=== PATIENT | male | born 1990 | race Caucasian/White ===

== ENCOUNTER 2016-11-14 18:07 | Emergency (ER) | payer SELFPAY ==
--- NOTE | 2016-11-14 19:40 | ERNOTE ---
ENT HPI Date of Service: 11/14/16 Presenting Symptoms: other - URI, enlarged lymph node Time Seen by Provider: 11/14/16 19:25 Source: patient, RN notes reviewed Exam Limitations: no limitations - Immun/Allergies/Home Medications Immunizations: IMMUNIZATION HX Immunizations Up to Date No History of Influenza Vaccine No Hx Pneumococcal Vaccination No Allergies/Adverse Reactions: Allergies Allergy/AdvReac Type Severity Reaction Status Date / Time Penicillins Allergy Verified 11/14/16 18:58 Home Medications: HOME MEDICATIONS NK [No Home Medication] 04/14/15 [Last Taken Unknown] - History of Present Illness Narrative: 26 y/o male ambulatory to the ED for URI symptoms and an enlarged cervical lymph node. He has had a sore throat, headache, nasal congestion, fatigue and malaise over the past couple of days. He was seen for an enlarged left cervical node by ENT approximately 6 months ago. He was treated with an antibiotic, but his symptoms did not improve. He did not f/u with ENT. He is concerned because the node has become even larger since he has not been feeling well. ENT Location: Present: throat Prearrival Treatment: Present: no prearrival treatment Associated Symptoms - ENT: Reports: malaise, sore throat, nasal congestion/ drainage, headache. Denies: fever, poor fluid intake, poor solid intake, cough , voice change, facial pain/swelling, tooth pain, jaw swelling, ear drainage Review of Systems - Review of Systems Constitutional: Present: See HPI EYE: Present: no symptoms reported ENT: Present: See HPI Respiratory: Present: See HPI Cardiology: Present: no symptoms reported Gastrointestinal/Abdominal: Absent: nausea, vomiting, diarrhea, abdominal pain Genitourinary: Present: no symptoms reported Musculoskeletal: Present: neck pain. Absent: muscle pain, joint pain Skin: Present: lumps. Absent: rash, lesions Neurological: Present: headache. Absent: dizziness/light-headedness Endocrine: Present: no symptoms reported Hematologic/Lymphatic: Present: no symptoms reported Psych: Present: no symptoms reported - Patient's Past Medical History Patient History - Medical: No pertinent hx Patient History - Cardiac/Respiratory: No pertinent hx Patient History - Cancer: No Hx of Cancer Patient History - Surgical Procedures: No surgical history Patient History - Other: None - Social History Living Situations: home Psych History: No pertinent hx Smoking Status: Current every day smoker Alcohol Use: occasionally Drug Use: marijuana - Immunizations Immunizations Up to Date: No Hx Pneumococcal Vaccination: No History of Influenza Vaccine: No Physical Exam - Physical Exam General Appearance: Present: alert, no apparent distress, thin Ears, Nose, Throat: Present: hearing grossly normal, nasal congestion, sinus pain/drainage, pharyngeal erythema. Absent: abnormal TM (R), abnormal TM (L), pharyngeal swelling Neck: Present: supple, lymphadenopathy (R), lymphadenopathy (L), tender lateral , other - bilateral submandibular node enlargement, worse on left Respiratory: Present: no respiratory distress, normal breath sounds, no accessory muscle use, lungs clear Cardiovascular/Chest: Present: regular rate, rhythm, no murmur Neurological Exam: Present: alert, oriented, normal mood/affect, no motor/ sensory deficits Skin Exam: Present: normal color, warm/dry ED Progress - Results and Orders Patient's Lab Results:: I have reviewed the patient's lab results. - Vital Signs Patient's Vital Signs:: I have reviewed the patient's vital signs. Vital Signs: Vital Signs 11/14/16 18:52 Temperature 36.7 C Pulse Rate 68 Respiratory 18 Rate Blood Pressure 138/98 O2 Sat by Pulse 98 Oximetry - Progress/Reassessment Chief Complaint: Sore Throat Progress:: Unchanged Plan - Plan Plan: Discussed lymphadenopathy at length - reassured patient that it is normal to have this during illness, but he should have f/u with ENT as the enlarged node of concern over the past few months did not improve with treatment Departure Clinical Impression: Upper respiratory infection, viral, Cervical lymphadenopathy - Departure Disposition: Home Follow Up Needed Condition: Good Instructions: Upper Respiratory Infection, Adult, [id number], Form - Excuse from Work, School, or Physical Activity Additional Instructions: Symptomatic treatment as discussed - push fluids, rest, nasal saline, humidity, Tylenol/ibuprofen for pain/fever Follow up with Dr. White about ongoing lymph node enlargement
[2016-11-14 20:01] LABS: Hematocrit 42.7 % (42.0-52.0); Hemoglobin 14.6 gm/dL (13.5-18.0); Mean Cell Volume 88.4 fl (78-100); Mean Corpuscular Hemoglobin 30.2 pg (27-31); Mean Corpuscular Hgb Conc 34.2 g/dl (32-36); Mean Platelet Volume 10.8 fl (6.0-9.5); Neutrophil # 3.2 K/mm3 (1.3-6.0); Neutrophil % 50.2 % (42-75.0); Platelet Count 185 K/mm3 (150-450); Red Blood Count 4.83 M/mm3 (4.7-6.0); Red Cell Distribution Width 12.1 % (11.5-14.0); White Blood Count 6.3 K/mm3 (4.0-10.5)
[2016-11-14 20:16] LABS: Albumin * 4.1 gm/dl (3.4-5.0); Anion Gap 14.9 mmol/L (6.8-13.8); BUN/Creatinine Ratio 14.8 (9.0-21.6); Bilirubin, Total 0.2 mg/dL (0.0-1.1); Ca. Corrected For Albumin 8.7 mg/dL (8.4-10.2); Calcium * 9.1 mg/dL (7.9-10.9); Carbon Dioxide 24.8 mmol/L (24-32.6); Potassium 3.7 mmol/L (3.4-4.6); Total Protein 7.7 gm/dL (6.2-8.2)
[2016-11-14 23:03] VITALS: BP 125/79
== END 2016-11-14 21:15 | disposition home or self-care (01) ==
LOC: ER 18:07
DX: J06.9 Acute upper respiratory infection, unspecified (principal); Z72.0 Tobacco use; R59.0 Localized enlarged lymph nodes

== ENCOUNTER 2018-08-08 16:28 | Inpatient (IN) ==
--- NOTE | 2018-08-08 17:10 | ERNOTE ---
Upper Extremity HPI - Narrative Date of Service: 08/08/18 - General Extremities Pain Location: thumb: left Time Seen by Provider: 08/08/18 16:39 Source: patient Exam Limitations: no limitations - Immun/Allergies/Home Medications Immunizations: IMMUNIZATION HX Immunizations Up to Date Yes History of Influenza Vaccine No Hx Pneumococcal Vaccination No Allergies/Adverse Reactions: Allergies Allergy/AdvReac Type Severity Reaction Status Date / Time Penicillins AdvReac Unknown Unknown Verified 08/08/18 16:34 Home Medications: HOME MEDICATIONS HYDROcodone/ACETAMINOPHEN [[place] 5-325 Tablet] 1 - 2 tab PO Q6H PRN #20 tab 08/06/18 [Last Taken Unknown] Sulfamethoxazole/Trimethoprim [Bactrim Ds] 1 tab PO BID #14 tab 08/06/18 [Last Taken Unknown] - History of Present Illness Narrative: Patient reports having been in the ER on Jul.31 for a swollen thumb of the left hand. Was not sure if there was a tuft fracture at that time. Patient returned 2 days ago with more swelling and signs of infection. Was placed on antibiotics. However patient reports he had increased redness extending clear up into his left armpit. States he has minimal sensation in the left thumb but normal in the fingers. Denies any fever. Date (Duration): 07/31/18 Occurred: last week Location of Incident: home Severity: moderate Method of Injury: Reports: other - Thought he may have poked his finger. Modifying Factors - (Worsens): Reports: movement Associated Symptoms: Reports: numbness distally Other Injuries: Reports: none Prior Treament: Reports: recently seen, treated by physician, similar symptoms before, currently on antibiotics Review of Systems - Review of Systems Constitutional: Present: no symptoms reported. Absent: fever Respiratory: Present: no symptoms reported Musculoskeletal: Present: See HPI, other - Left thumb swelling as described. Skin: Present: See HPI, other Neurological: Present: See HPI, numbness - Numbness on the tip of the thumb left hand. Hematologic/Lymphatic: Present: no symptoms reported Medical History (Last Reviewed 08/08/18 @ 16:34 by Brayan Brian RN) No pertinent family history No pertinent past medical history Surgical History: Surgical History (Last Reviewed 08/08/18 @ 16:34 by Brayan Brian RN) No pertinent past surgical history Family History: Family History (Last Reviewed 08/08/18 @ 16:34 by Brayan Brian RN) Other No pertinent family history Social History: Preferred Language Bahamian Smoking Status Current every day smoker Psych History No pertinent hx Alcohol Use none Drug Use none No Social History Section defined Physical Exam - Physical Exam General Appearance: Present: wd/wn, alert, moderate distress Respiratory: Present: no respiratory distress, no accessory muscle use Extremity Exam: Present: other - Patient has severe swelling of the left thumb with distal phalynx blackened. Very minimal sensation distally. Serosanguinous drainage from the proximal end of the dorsal nail. Entire hand is swollen on the left. However has sensation on the remainder phalanges of the hand. Neurological Exam: Present: alert, oriented Skin Exam: Present: other - Patient has lymphangitis extending from the left hand on the volar side extending proximally into the left axilla. very warm to touch. ED Progress - Results and Orders Patient's Lab Results:: I have reviewed the patient's lab results. - Vital Signs Patient's Vital Signs:: I have reviewed the patient's vital signs. Vital Signs: Vital Signs 08/08/18 16:28 08/08/18 16:38 Temperature 36.8 C 38.2 C H Pulse Rate 119 H 121 H Respiratory Rate 16 20 Blood Pressure 153/92 H 126/96 H O2 Sat by Pulse Oximetry 100 100 - Progress/Reassessment Chief Complaint: Hand Injury/Pain Progress:: Improved - Dr. Franco in to intervene on the left 1st digit. Notified Dr. Shaw of need for admit and he agrees. Will admit acute. Departure Clinical Impression: Abscess of finger of left hand, Acute lymphangitis of left upper extremity - Departure Disposition: Still a patient Condition: Stable
[2018-08-08 17:11] LABS: Hematocrit 34.6 % (42.0-52.0); Hemoglobin 11.7 gm/dL (13.5-18.0); Mean Cell Volume 88.5 fl (78-100); Mean Corpuscular Hemoglobin 29.9 pg (27-31); Mean Corpuscular Hgb Conc 33.8 g/dl (32-36); Mean Platelet Volume 9.4 fl (8-11.3); Neutrophil # 11.1 K/mm3 (1.3-6.0); Neutrophil % 79.8 % (42-75.0); Platelet Count 258 K/mm3 (150-450); Red Blood Count 3.91 M/mm3 (4.7-6.0); Red Cell Distribution Width 12.5 % (11.5-14.0); White Blood Count 13.9 K/mm3 (4.0-10.5)
[2018-08-08] MEDS ORDERED: VANCOMYCIN HCL 1 GM in DEXTROSE 5 % IN WATER 250 ML IV ONE ×2 (17:11)
[2018-08-08] MEDS ORDERED: CLINDAMYCIN PHOSPHATE 900 MG in DEXTROSE 5 % IN WATER 100 ML IV ONE ×2 (17:13)
[2018-08-08] MEDS ORDERED: NORMAL SALINE 1,000 ML IV PRN (17:16)
[2018-08-08 17:37] LABS: Albumin * 3.2 gm/dl (3.4-5.0); Anion Gap 12.5 mmol/L (6.8-13.8); BUN/Creatinine Ratio 13.6 (9.0-21.6); Bilirubin, Total 0.3 mg/dL (0.0-1.1); Ca. Corrected For Albumin 9.2 mg/dL (8.4-10.2); Calcium * 8.9 mg/dL (7.9-10.9); Carbon Dioxide 30.7 mmol/L (24-32.6); Potassium 4.2 mmol/L (3.4-4.6); Total Protein 7.9 gm/dL (6.2-8.2)
[2018-08-08] MEDS ORDERED: ACETAMINOPHEN 500 MG TABLET PO ONE (18:09)
[2018-08-08] MEDS ORDERED: MORPHINE SULFATE 4 MG/ML SYRG IV ONE (18:25)
[2018-08-08] MEDS: NICOTINE 21 MG PATC TD SCH (18:27)
--- NOTE | 2018-08-08 18:31 | CONS ---
- Reason for consultation (1) Abscess of finger of left hand Date of Service: 08/08/18 HPI - General Narrative: Mr. Martinez is a 27-year-old gentleman who states he was placing a trailer hitch on the trailer ball when he stubbed his thumb approximately a week and half ago. He states he had pain but no bleeding at the time of injury. He was seen at [facility] and initial evaluation was a possible tuft fracture. He reports approximately 3 days ago he noted increased swelling and pain and reported again to the emergency department at time he is found to have some increased erythema was placed on antibiotics and arranged for orthopedic follow- up. He reports today with increased swelling and pain. He had some noted drainage over the dorsal aspect of the thumb which was concerning as well as some increased erythema spreading up his arm. He states most his pain is over the dorsal aspect of his thumb as well as the tip of his thumb and he has minimal pain proximal or into the forearm. He denies any lacerations or puncture wounds. He also states she does not have a history of recurrent infections. Source: patient Exam Limitations: no limitations - History of Present Illness Timing/Duration: 1 week Severity: severe Modifying Factors - (Worsens): Reports: movement Modifying Factors - (Improves): Reports: immobilization, medication Associated Symptoms: fever/chills Allergies/Adverse Reactions: Allergies Penicillins Adverse Reaction (Unknown, Verified 08/08/18 16:34) Unknown Home Medications: Home Medications Medication Instructions Recorded Last Taken HYDROcodone/ACETAMINOPHEN [[place] 1 - 2 tab PO Q6H PRN #20 tab 08/06/18 Unknown 5-325 Tablet] Sulfamethoxazole/Trimethoprim 1 tab PO BID #14 tab 08/06/18 Unknown [Bactrim Ds] Procedures Application of splint (03/29/07) Closed reduction of nasal fracture (01/08/09) Closure of skin and subcutaneous tissue of other sites (01/08/09) Immobilization of Left Thumb using Splint (07/31/18) Suture of laceration of other part of mouth (01/08/09) Medications - Medications Current Medications: Current Medications Vancomycin HCl 1 gm/ Dextrose/ (Water) 250 mls @ 140 mls/hr IV ONCE ONE; Protocol Stop: 08/08/18 18:58 Last Admin: 08/08/18 18:15 Dose: 140 mls/hr Sodium Chloride (Sodium Chloride 0.9%) 1,000 mls @ 999 mls/hr IV .Q1H1M PRN PRN Reason: HYDRATION Stop: 09/07/18 17:17 Last Infusion: 08/08/18 18:22 Dose: 100 mls/hr Review of Systems - Review of Systems Narrative: Negative except for above Generalized/Overall Review: Present: No Symptoms Reported Physical Examination - Exam Narrative: Left thumb: Palpable loculation over the tip of the thumb as well as the dorsal aspect of the thumb. There is a draining tract proximal to the nail. There is noted erythema spreading into the radial aspect of the forearm. He has no tenderness along the extensor tendons proximal to the thumb. No tenderness along the flexor tendons proximal to the thumb. He is significant swelling about his thumb and hand. Sensation is intact light touch. He is able to flex and extend his thumb without excessive pain. He has minimal tenderness along the flexor tendon sheath. He has moderate tenderness over the dorsal aspect of the thumb. He has brisk cap refill proximally and some discoloration distally. Vital Signs: Vital Signs - Last Taken Temp 39.5 C H 08/08/18 17:37 Pulse 113 H 08/08/18 17:37 Resp 14 08/08/18 17:37 BP 146/90 H 08/08/18 17:37 Pulse Ox 99 08/08/18 17:37 O2 Oxygen Delivery Method Room Air Constitutional: Present: Alert, Oriented x3 - Results and Findings: Lab/Microbiology results last 24 hrs: Abnormal/Pending Laboratory Last 24 HRS 08/08/18 08/08/18 16:55 16:55 WBC 13.9 H RBC 3.91 L Hgb 11.7 L Hct 34.6 L Immature Gran # (Auto) 0.05 H Neutrophils % 79.8 H Lymphocytes % 12.0 L Neutrophils # 11.1 H Albumin 3.2 L - Assessments/Findings (1) Abscess of finger of left hand Diagnosis(s): We discussed the patient that he likely has a significant abscess which is somewhat atypical as he had no puncture wounds or bleeding 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 He developed likely a felon which has spread into the dorsal aspect of his thumb. An irrigation debridement was performed at bedside. See procedure note. He will be admitted to medicine for IV antibiotics and wound care. We discussed the risk of him having some deformity once this thumb is fully healed but by decompressing this abscess and placing him on IV antibiotics he should be able to heal this up well. Problem: Acute
--- NOTE | 2018-08-08 18:36 | OR ---
Operative Report - Dictated Report Narrative: Date: 08/08/2018 Surgeon: Ashish Franco M.D. Anatomic Pathologist: None Anesthesia: Digital block with 1% lidocaine plain Preoperative diagnosis: Left thumb abscess. Postoperative diagnosis: Left thumb abscess Procedure: left thumb irrigation and debridement Estimated blood loss: Minimal Specimens: Culture Complications: None Indications: Mr. Martinez is a 27-year-old gentleman who injured his left thumb approximately week and a half ago while hitching a trailer. He was seen in the emergency department revealing the above injury. Treatment options were discussed with the patient and the plan for irrigation and debridement was discussed. Risks were reviewed. Procedure: After a timeout, digital block anesthetic was induced. Once adequate anesthesia was in place a Artemus drain was placed around the base of the thumb. Total time was approximately 25 minutes. A transverse laceration was made over the volar aspect of the pulp along the radial aspect of the thumb. A longitudinal incision was made over the base of the dorsal aspect of the thumb. The draining sinus tract was also developed. All 3 of these spots produced significant purulent material. Once this was decompressed or significant sloughing of the skin over the volar aspect of the thumb as well as the ulnar dorsal aspect of the thumb. This was excised using tenotomies. The nail was also unstable and this was removed. There was a small draining tract at the tip of the thumb through the sterile matrix. The purulent necrotic appearing tissues were debrided which was not an extensive amount. The thumb was placed through range of motion and had no increased purulent drainage. Pressure and manipulation of the fluid pockets produced significant purulent material. Once we had expressed all the preoperative material, copious saline irrigation was placed through the wounds. A Artemus drain was placed dorsally as well as over the tip of the thumb. A single stitch was placed across the sterile matrix in order to reapproximate this wound. Xeroform, 4 x 4, and gauze was placed to the thumb. Tourniquet was deflated and there was not excessive bleeding. After the procedure he reports no increased or significant tenderness along the flexor extensor tendons proximal to the thumb.
[2018-08-08] MEDS ORDERED: HYDROcodone/ACETAMINOPHEN 1 EACH TABLET PO PRN (20:53)
--- NOTE | 2018-08-08 21:14 | HP ---
Chief Complaint - Chief Complaint Date of Service: 08/08/18 Time of Service: 08:45 Chief Complaint: Infected L. thumb with lymphangitis to the L. axilla History of Present Illness: Was initially seen 07/31 for pain and swelling in the L. thumb. Possible tuft fracture then. Returned 3 days later with more redness and swelling and pain and was started on an antibiotic but it has continued to worsen. He was seen in the ER this afternoon by Dr. Franco and the wound was opened and drained. He is admitted with a severe L. hand infection with marked lymphangitis to the L. axilla. He is afebrile. He reports that he is in good health otherwise, takes no chronic meds, and has no PCP. 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 Smoking Status Current every day smoker Have you smoked in the past 12 Yes months Do you dip or chew tobacco No Psych History No pertinent hx Alcohol Use none Drug Use none No Social History Section defined Review Of Systems (GEN) - Review of Systems Generalized/Overall Review: Absent: Chills, Fever, Malaise EENTM: Present: No Symptoms Reported Respiratory: Present: No Symptoms Reported Cardiac: Present: No Symptoms Reported Abdominal: Present: No Symptoms Reported Genitourinary: Present: No Symptoms Reported Musculoskeletal: Present: No Symptoms Reported Neurological: Present: No Symptoms Reported Skin: Present: Other - L. thumb infection with near anesthesia of the thumb, swelling of the L. hand, fever, redness and lymphangitis to the L axilla. Endocrine: Present: No Symptoms Reported Misc: All systems neg except as marked Immunizations: IMMUNIZATION HX Immunizations Up to Date Yes History of Influenza Vaccine No Hx Pneumococcal Vaccination No Allergies/Adverse Reactions: Allergies Allergy/AdvReac Type Severity Reaction Status Date / Time Penicillins AdvReac Unknown Unknown Verified 08/08/18 16:34 Home Medications: HOME MEDICATIONS HYDROcodone/ACETAMINOPHEN [[place] 5-325 Tablet] 1 - 2 tab PO Q6H PRN #20 tab 08/06/18 [Last Taken Unknown] Sulfamethoxazole/Trimethoprim [Bactrim Ds] 1 tab PO BID #14 tab 08/06/18 [Last Taken Unknown] Exam - Exam Vital Signs: Vital Signs - Last Taken Temp 37.6 C 08/08/18 19:23 Pulse 110 H 08/08/18 19:23 Resp 16 08/08/18 19:23 BP 135/81 08/08/18 19:23 Pulse Ox 99 08/08/18 19:23 Constitutional: Present: Alert, Oriented x3, Cooperative, Well developed, Well nourished, No distress Eye Exam: bilateral eye: normal inspection, PERRL, EOMI Neck: Present: non-tender, full range of motion Back Exam: Present: normal inspection, no CVA tenderness, no vertebral tenderness Breasts: Present: Exam deferred, Nontender Respiratory: Present: chest non-tender, lungs clear, normal breath sounds, no respiratory distress, no accessory muscle use Cardiovascular/Chest: Present: normal peripheral pulses, regular rate, rhythm, no chest tenderness, no edema - except in the L UE. Peripheral Pulses: carotid (R): 2+, carotid (L): 2+, radial (R): 2+, radial (L): 2+ Abdomen: Present: Normal bowel sounds, soft, nontender, nondistended, no rebound tenderness, no hepatospenomegaly, no masses /Rectal: Present: Exam deferred, External genitalia normal Extremity: Present: normal range of motion, non-tender, normal inspection, no pedal edema, no calf tenderness, normal capillary refill Skin Exam: Present: normal color, warm/dry, no cyanosis, other - See description above for the L. hand and arm findings. Neurologic: Present: ssis architect II-XII nml as tested, normal cerebellar test, no motor/sensory deficits, alert, normal mood/affect, oriented x 3 Appearance: Present: appropriate appearance, appropriate insight, neat, no memory impairment Eye contact: Present: cooperative, good eye contact, normal speech Thoughts: Present: normal thought pattern, no apparent hallucination. Absent: auditory hallucinations, delusions Diagnostic Studies: Abnormal Lab Results 08/08/18 08/08/18 Range/Units 16:55 16:55 WBC 13.9 H (4.0-10.5) K/mm3 RBC 3.91 L (4.7-6.0) M/mm3 Hgb 11.7 L (13.5-18.0) gm/dL Hct 34.6 L (42.0-52.0) % Immature Gran # (Auto) 0.05 H (0.000-0.0310) K/mm3 Neutrophils % 79.8 H (42-75.0) % Lymphocytes % 12.0 L (20-51) % Neutrophils # 11.1 H (1.3-6.0) K/mm3 Albumin 3.2 L (3.4-5.0) gm/dl Laboratory Results WBC 13.9 K/mm3 (4.0-10.5) H 08/08/18 16:55 RBC 3.91 M/mm3 (4.7-6.0) L 08/08/18 16:55 Hgb 11.7 gm/dL (13.5-18.0) L 08/08/18 16:55 Hct 34.6 % (42.0-52.0) L 08/08/18 16:55 MCV 88.5 fl (78-100) 08/08/18 16:55 MCH 29.9 pg (27-31) 08/08/18 16:55 MCHC 33.8 g/dl (32-36) 08/08/18 16:55 RDW 12.5 % (11.5-14.0) 08/08/18 16:55 Plt Count 258 K/mm3 (150-450) 08/08/18 16:55 MPV 9.4 fl (8-11.3) 08/08/18 16:55 Immature Gran % (Auto) 0.40 % (0.001-0.429) 08/08/18 16:55 Immature Gran # (Auto) 0.05 K/mm3 (0.000-0.0310) H 08/08/18 16:55 Neutrophils % 79.8 % (42-75.0) H 08/08/18 16:55 Lymphocytes % 12.0 % (20-51) L 08/08/18 16:55 Monocytes % 6.9 % (0.0-9) 08/08/18 16:55 Eosinophils % 0.7 % (0.0-3.0) 08/08/18 16:55 Basophils % 0.2 % (0.0-1.0) 08/08/18 16:55 Nucleated RBC % 0.0 k/mm3 (0-1) 08/08/18 16:55 Neutrophils # 11.1 K/mm3 (1.3-6.0) H 08/08/18 16:55 Lymphocytes # 1.67 k/mm3 (1.5-3.5) 08/08/18 16:55 Monocytes # 1.0 k/mm3 (0.0-1.0) 08/08/18 16:55 Eosinophils # 0.1 k/mm3 (0.0-0.7) 08/08/18 16:55 Absolute Basophils 0.0 k/mm3 (0.0-0.1) 08/08/18 16:55 Sodium 136 mmol/L (132-142) 08/08/18 16:55 Plasma Sodium 136 mmol/L (130-142) 08/08/18 16:55 Potassium 4.2 mmol/L (3.4-4.6) 08/08/18 16:55 Chloride 97 mmol/L (97-106) 08/08/18 16:55 Carbon Dioxide 30.7 mmol/L (24-32.6) 08/08/18 16:55 Anion Gap 12.5 mmol/L (6.8-13.8) 08/08/18 16:55 BUN 14 mg/dL (6-23) 08/08/18 16:55 Creatinine 1.03 mg/dL (0.4-1.4) 08/08/18 16:55 Est GFR (Non-Af Amer) 94 mL/min (60-130) 08/08/18 16:55 BUN/Creatinine Ratio 13.6 (9.0-21.6) 08/08/18 16:55 Random Glucose 91 mg/dL (70-110) 08/08/18 16:55 Lactic Acid, Venous 0.8 mmol/L (0.4-2.0) 08/08/18 16:55 Calcium 8.9 mg/dL (7.9-10.9) 08/08/18 16:55 Calcium Adj for Albumin 9.2 mg/dL (8.4-10.2) 08/08/18 16:55 Total Bilirubin 0.3 mg/dL (0.0-1.1) 08/08/18 16:55 AST 24 U/L (0-48) 08/08/18 16:55 ALT 36 U/L (19-67) 08/08/18 16:55 Alkaline Phosphatase 89 U/L (50-170) 08/08/18 16:55 Total Protein 7.9 gm/dL (6.2-8.2) 08/08/18 16:55 Albumin 3.2 gm/dl (3.4-5.0) L 08/08/18 16:55 Assessment/Plan - Narrative Narrative: 1. IV antibiotics estimated 3 days 2. monitor closely for other possible surgical needs 3. Manage pain - Assessment/Plan (1) Cellulitis Problem: Acute Qualifiers: Site of cellulitis: extremity Site of cellulitis of extremity: upper extremity Laterality: right Qualified Code(s): L03.113 - Cellulitis of right upper limb (2) Abscess of finger of left hand Problem: Acute (3) Acute lymphangitis of left upper extremity Problem: Acute
[2018-08-08] MEDS: SULFAMETHOXAZOLE/TRIMETHOPRIM 1 TAB TABLET PO SCH (21:30)
[2018-08-08] MEDS: MORPHINE SULFATE 10 MG/ML SYRG IV PRN (21:31)
[2018-08-08] MEDS: NORMAL SALINE 1,000 ML IV PRN (23:00)
[2018-08-09] MEDS: MORPHINE SULFATE 10 MG/ML SYRG IV PRN ×5 (01:17→19:09)
[2018-08-09] MEDS: CLINDAMYCIN PHOSPHATE 900 MG in DEXTROSE 5 % IN WATER 100 ML IV SCH ×6 (01:21→17:37)
[2018-08-09] MEDS ORDERED: VANCOMYCIN HCL 1 GM in DEXTROSE 5 % IN WATER 250 ML IV SCH ×2 (05:00)
[2018-08-09 06:01] LABS: Hematocrit 36.9 % (42.0-52.0); Hemoglobin 12.2 gm/dL (13.5-18.0); Mean Cell Volume 89.8 fl (78-100); Mean Corpuscular Hemoglobin 29.7 pg (27-31); Mean Corpuscular Hgb Conc 33.1 g/dl (32-36); Mean Platelet Volume 9.7 fl (8-11.3); Neutrophil # 7.1 K/mm3 (1.3-6.0); Neutrophil % 66.4 % (42-75.0); Platelet Count 234 K/mm3 (150-450); Red Blood Count 4.11 M/mm3 (4.7-6.0); Red Cell Distribution Width 12.6 % (11.5-14.0); White Blood Count 10.7 K/mm3 (4.0-10.5)
[2018-08-09] MEDS: SULFAMETHOXAZOLE/TRIMETHOPRIM 1 TAB TABLET PO SCH (08:01)
[2018-08-09] MEDS: NORMAL SALINE 1,000 ML IV PRN ×2 (08:01→16:45)
--- NOTE | 2018-08-09 10:25 | PN ---
Subjective - Date and Time Seen Date: 08/09/18 Time: 10:23 Subjective Narrative: He reports some improved pain. Still uncomfortable. Better with pain meds. No other complaints Objective - Vitals Vitals: Last Vital Signs Temp 36.9 C 08/09/18 07:20 Pulse 83 08/09/18 07:20 Resp 20 08/09/18 07:20 BP 113/60 08/09/18 07:20 Pulse Ox 100 08/09/18 07:20 - Abnormal Lab Findings Abnormal Lab Findings: Abnormal Lab Results 08/08/18 08/08/18 08/09/18 Range/Units 16:55 16:55 06:00 WBC 13.9 H 10.7 H D (4.0-10.5) K/mm3 RBC 3.91 L 4.11 L (4.7-6.0) M/mm3 Hgb 11.7 L 12.2 L (13.5-18.0) gm/dL Hct 34.6 L 36.9 L (42.0-52.0) % Immature Gran # (Auto) 0.05 H 0.04 H (0.000-0.0310) K/mm3 Neutrophils % 79.8 H (42-75.0) % Lymphocytes % 12.0 L (20-51) % Neutrophils # 11.1 H 7.1 H (1.3-6.0) K/mm3 Albumin 3.2 L (3.4-5.0) gm/dl - Exam Exam Narrative: LUE - dressings intact with bloody / serous drainage, erythema improved up arm, swelling slightly improved, no pain in other fingers or along volar/dorsal tendons of thumb Constitutional: Present: Alert, Oriented x3 Assessment/Plan - Problems/Diagnosis (1) Abscess of finger of left hand Problem: Acute Narrative: Will plan for dressing change this afternoon, continue IV antibiotics until cultures return, keep wounds dry.
--- NOTE | 2018-08-09 13:01 | PN ---
Subjective - Date and Time Seen Date: 08/09/18 Time: 11:00 Subjective Narrative: Juan Pablo Martinez was admitted yesterday with a left thumb infection and infection, cellulitis of the hand, lymphangitis to the axilla and axillary adenitis. This is been causing a lot of pain in the thumb. Dr. Franco opened and drained the abscess on the thumb in the emergency room. He will follow along while he is in the hospital. This morning the arm is less red but there is still quite a lot of swelling in the forearm. The lymphangitis is nearly faded completely now. He continues to have a lot of axillary lymphadenitis. He has been afebrile. Jenny and I discussed his antibiotic profile this morning and we have decided to discontinue the Bactrim and vancomycin. We will continue clindamycin 900 mg 3 times a day pending culture results. There is interval clinical improvement. His pain management has been an adequate with oral hydrocodone. The morphine helps but makes him very sleepy. I discontinued the hydrocodone and will start oxycodone 5/325 to take 2 by mouth every 4 hours when necessary for pain. Objective - Review of Systems Generalized/Overall Review: Reports: No Symptoms Reported EENTM: Reports: No Symptoms Reported Respiratory: Reports: No Symptoms Reported Cardiac: Reports: No Symptoms Reported Abdominal: Reports: No Symptoms Reported Genitourinary Symptoms: Reports: No Symptoms Reported Musculoskeletal Complaints: Reports: Other - Left thumb, and, forearm and arm Neurological: Reports: Numbness - In the left thumb as it is nearly anesthetic. The rest of the fingers still have feeling. Skin: Reports: No Symptoms Reported Endocrine: Reports: No Symptoms Reported - Vitals Vitals: Last Vital Signs Temp 36.9 C 08/09/18 10:52 Pulse 88 08/09/18 10:52 Resp 20 08/09/18 10:52 BP 99/42 08/09/18 10:52 Pulse Ox 100 08/09/18 10:52 - Abnormal Lab Findings Abnormal Lab Findings: Abnormal Lab Results 08/08/18 08/08/18 08/09/18 Range/Units 16:55 16:55 06:00 WBC 13.9 H 10.7 H D (4.0-10.5) K/mm3 RBC 3.91 L 4.11 L (4.7-6.0) M/mm3 Hgb 11.7 L 12.2 L (13.5-18.0) gm/dL Hct 34.6 L 36.9 L (42.0-52.0) % Immature Gran # (Auto) 0.05 H 0.04 H (0.000-0.0310) K/mm3 Neutrophils % 79.8 H (42-75.0) % Lymphocytes % 12.0 L (20-51) % Neutrophils # 11.1 H 7.1 H (1.3-6.0) K/mm3 Albumin 3.2 L (3.4-5.0) gm/dl - Exam Constitutional: Present: Alert, Oriented x3, Cooperative, Well developed, Well nourished, No distress ENT Exam: Present: normal ENT inspection, hearing grossly normal, pharynx normal Neck: Present: non-tender, full range of motion, supple, normal inspection, trachea midline Breasts: Present: Exam deferred Respiratory: Present: chest non-tender, lungs clear, normal breath sounds, no respiratory distress, no accessory muscle use Cardiovascular/Chest: Present: normal peripheral pulses, regular rate, rhythm, no chest tenderness, no edema, no gallop Abdomen: Present: Normal bowel sounds, soft, nontender, nondistended, no rebound tenderness, no hepatospenomegaly, no masses /Rectal: Present: Exam deferred Extremity: Present: normal range of motion, non-tender, normal inspection, no pedal edema, no calf tenderness, normal capillary refill, other - The findings of a left upper extremity are described above. Skin Exam: Present: normal color, warm/dry, no cyanosis Lymphatic: Present: axilla node tender (L) Neurologic: Present: division chief II-XII nml as tested, no motor/sensory deficits, alert, normal mood/affect, oriented x 3 Appearance: Present: appropriate appearance, appropriate insight, neat, no memory impairment Eye contact: Present: cooperative, good eye contact, normal speech Thoughts: Present: normal thought pattern, no apparent hallucination Assessment/Plan - Problems/Diagnosis (1) Abscess of finger of left hand Problem: Acute (2) Cellulitis Problem: Acute Qualifiers: Site of cellulitis: extremity Site of cellulitis of extremity: upper extremity Laterality: right Qualified Code(s): L03.113 - Cellulitis of right upper limb (3) Acute lymphangitis of left upper extremity Problem: Acute (4) Axillary lymphadenitis Problem: Acute Narrative: The lymph nodes in the left axilla are more tender today than they were yesterday. They are palpably enlarged and tender to touch. There continues to be some fever and the arm although I only subjectively is less than yesterday.
[2018-08-09] MEDS: oxyCODONE HCL/ACETAMINOPHEN 1 TAB TABLET PO PRN ×2 (14:28→22:07)
[2018-08-09] MEDS: NICOTINE 21 MG PATC TD SCH (17:37)
[2018-08-10] MEDS: CLINDAMYCIN PHOSPHATE 900 MG in DEXTROSE 5 % IN WATER 100 ML IV SCH ×6 (01:04→17:19)
[2018-08-10] MEDS: MORPHINE SULFATE 10 MG/ML SYRG IV PRN ×2 (01:11→04:42)
[2018-08-10] MEDS: NORMAL SALINE 1,000 ML IV PRN ×3 (01:48→20:23)
[2018-08-10] MEDS: oxyCODONE HCL/ACETAMINOPHEN 1 TAB TABLET PO PRN ×4 (06:39→22:09)
--- NOTE | 2018-08-10 09:11 | PN ---
Subjective - Date and Time Seen Date: 08/10/18 Time: 08:20 Subjective Narrative: Juan Pablo continues to show clinical improvement. Arm redness and the lymphangitis are no longer visible. The axillary adenopathy is still present and remains very tender to palpation. The left thumb has much more feeling in it now and it is causing more pain. The other 4 fingers seem to be normal sensory. His pain management is better than yesterday but still is having quite a lot of discomfort. Continues to take oxycodone 06/30/2025 and the IV morphine. Cultures are not back yet expect finals tomorrow. Hopefully his sensitivity will tell us how to complete his treatment program. He is on clindamycin 900 mg IV 3 times a day. Objective - Review of Systems Generalized/Overall Review: Reports: No Symptoms Reported EENTM: Reports: No Symptoms Reported Respiratory: Reports: No Symptoms Reported Cardiac: Reports: No Symptoms Reported Abdominal: Reports: No Symptoms Reported Genitourinary Symptoms: Reports: No Symptoms Reported Musculoskeletal Complaints: Reports: Other - Pain in the left thumb hand and axilla as described above. Lymphangitis and swelling are greatly reduced. Neurological: Reports: No Symptoms Reported, Numbness - Of the left thumb Skin: Reports: No Symptoms Reported Endocrine: Reports: No Symptoms Reported - Vitals Vitals: Last Vital Signs Temp 36.4 C 08/10/18 01:28 Pulse 90 08/10/18 01:28 Resp 18 08/10/18 01:28 BP 114/70 08/10/18 01:28 Pulse Ox 98 08/10/18 01:28 - Exam Constitutional: Present: Alert, Oriented x3, Cooperative, Mild distress - Due to continued pain in the thumb ENT Exam: Present: normal ENT inspection, hearing grossly normal, pharynx normal Neck: Present: non-tender, full range of motion, supple Breasts: Present: Exam deferred Respiratory: Present: chest non-tender, lungs clear, normal breath sounds Cardiovascular/Chest: Present: normal peripheral pulses, regular rate, rhythm, no chest tenderness, no edema, no gallop, no JVD, no murmur Abdomen: Present: Normal bowel sounds, soft /Rectal: Present: Exam deferred Extremity: Present: normal range of motion, non-tender, normal inspection, no pedal edema, no calf tenderness Skin Exam: Present: normal color, warm/dry, no cyanosis Lymphatic: Present: no adenopathy Neurologic: Present: 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 nml as tested, normal cerebellar test, no motor/sensory deficits, alert, normal mood/affect, oriented x 3 Appearance: Present: appropriate appearance, appropriate insight, neat, no memory impairment Eye contact: Present: cooperative, good eye contact, normal speech Thoughts: Present: normal thought pattern, no apparent hallucination, normal mood /affect Assessment/Plan - Problems/Diagnosis (1) Abscess of finger of left hand Problem: Acute (2) Cellulitis Problem: Acute Qualifiers: Site of cellulitis: extremity Site of cellulitis of extremity: upper extremity Laterality: right Qualified Code(s): L03.113 - Cellulitis of right upper limb (3) Acute lymphangitis of left upper extremity Problem: Acute (4) Axillary lymphadenitis Problem: Acute
[2018-08-10] MEDS: NICOTINE 21 MG PATC TD SCH (17:15)
[2018-08-11] MEDS: CLINDAMYCIN PHOSPHATE 900 MG in DEXTROSE 5 % IN WATER 100 ML IV SCH ×4 (01:08→09:02)
[2018-08-11] MEDS: oxyCODONE HCL/ACETAMINOPHEN 1 TAB TABLET PO PRN ×2 (03:38→07:46)
[2018-08-11] MEDS: NORMAL SALINE 1,000 ML IV PRN (05:43)
--- NOTE | 2018-08-11 08:36 | DS ---
(1) Abscess of finger of left hand Problem: Acute (2) Cellulitis Problem: Resolved Qualifiers: Site of cellulitis: extremity Site of cellulitis of extremity: upper extremity Laterality: right Qualified Code(s): L03.113 - Cellulitis of right upper limb (3) Acute lymphangitis of left upper extremity Problem: Resolved (4) Axillary lymphadenitis Problem: Acute Description of Stay: Juan Pablo Martinez is a 27-year-old male who is admitted to my service through the emergency room with an infected thumb, lymphangitis to the left axilla, left axillary lymphadenitis. This is causing him extreme pain. He's had this them infected before last February and at that time was cultured as MRSA and sensitive to clindamycin. He had been on Bactrim DS but it was ineffective orally and so he was admitted failing outpatient therapy. He was initially started on clindamycin and vancomycin. The vancomycin was discontinued and he was continued on 900 mg clindamycin 3 times a day. Final culture report and ID and sensitivity are available just this morning and again showed this to be MRSA and again sensitive to clindamycin. He has used a lot of pain medication including IV morphine and oxycodone. Makes her sleepy but hasn't relieved his pain very well. He hasn't taken any morphine through the night but has been taking the oxycodone frequently. I will send him home on oxycodone alone. He will see me in the office in 6 days and then either follow with Dr. Franco or clinic until this is completely healed. Otherwise he has noted no other healthcare problems while here. Disposition is improved. Prognosis is good. Procedures Performed: none Results and Findings: Pending Mircobiology Results 08/08/18 17:10 Blood Blood Culture - Preliminary NO GROWTH AFTER 48 HOURS 08/08/18 16:55 Blood Blood Culture - Preliminary NO GROWTH AFTER 48 HOURS Lab Pending Results 08/08/18 16:55: WBC 13.9 H, RBC 3.91 L, Hgb 11.7 L, Hct 34.6 L, MCV 88.5, MCH 29.9, MCHC 33.8, RDW 12.5, Plt Count 258, MPV 9.4, Immature Gran % (Auto) 0.40, Immature Gran # (Auto) 0.05 H, Neutrophils % 79.8 H, Lymphocytes % 12.0 L, Monocytes % 6.9, Eosinophils % 0.7, Basophils % 0.2, Nucleated RBC % 0.0, Neutrophils # 11.1 H, Lymphocytes # 1.67, Monocytes # 1.0, Eosinophils # 0.1, Absolute Basophils 0.0 08/08/18 16:55: Lactic Acid, Venous 0.8 08/08/18 16:55: Sodium 136, Plasma Sodium 136, Potassium 4.2, Chloride 97, Carbon Dioxide 30.7, Anion Gap 12.5, BUN 14, Creatinine 1.03, Est GFR (Non-Af Amer) 94, BUN/Creatinine Ratio 13.6, Random Glucose 91, Calcium 8.9, Calcium Adj for Albumin 9.2, Total Bilirubin 0.3, AST 24, ALT 36, Alkaline Phosphatase 89, Total Protein 7.9, Albumin 3.2 L 08/09/18 06:00: WBC 10.7 H D, RBC 4.11 L, Hgb 12.2 L, Hct 36.9 L, MCV 89.8, MCH 29.7, MCHC 33.1, RDW 12.6, Plt Count 234, MPV 9.7, Immature Gran % (Auto) 0.40, Immature Gran # (Auto) 0.04 H, Neutrophils % 66.4, Lymphocytes % 22.9, Monocytes % 8.9, Eosinophils % 1.1, Basophils % 0.3, Nucleated RBC % 0.0, Neutrophils # 7.1 H, Lymphocytes # 2.45, Monocytes # 1.0, Eosinophils # 0.1, Absolute Basophils 0.0 Discharge Location: Home Disposition: Home self-care Condition: Fair Face to Face Encounter completed per [facility] Guidelines: No Discharge Activity: Activity as tolerated Discharge Diet: General/regular food Prescriptions (Any new or edited meds): Clindamycin HCl [Cleocin HCl] 300 mg PO QID #56 capsule Nicotine [Nicoderm] 21 mg TD Q24H #30 patch.td24 oxyCODONE HCL/ACETAMINOPHEN [Percocet 10-325 mg Tablet] 1 each PO Q4H #120 tablet Complete Home Medications List: Complete Home Medication List: Clindamycin HCl [Cleocin HCl] 300 mg PO QID #56 capsule 08/11/18 Nicotine [Nicoderm] 21 mg TD Q24H #30 patch.td24 08/11/18 oxyCODONE HCL/ACETAMINOPHEN [Percocet 10-325 mg Tablet] 1 each PO Q4H #120 tablet 08/11/18
[2018-08-11 11:16] VITALS: BP 120/79
== END 2018-08-11 11:22 | disposition home or self-care (01) | DRG 982 ==
LOC: ER 16:28 → MS 18:05
PROVIDERS: ADMIT Family Medicine; ATTEND Family Medicine
DX: F17.200 Nicotine dependence, unspecified, uncomplicated; L03.114 Cellulitis of left upper limb; L02.512 Cutaneous abscess of left hand; I88.9 Nonspecific lymphadenitis, unspecified; B95.62 Methicillin resistant Staphylococcus aureus infection as the cause of diseases classified elsewhere
CPT/HCPCS: 11750; 26011; 36415; 80053; 83605; 85025; 87040; 87070; 87077; 87081; 87186; 96361; 96365; 96375; 99284